=== PATIENT | female | born 1940 | race Caucasian/White ===

== ENCOUNTER 2018-07-09 05:59 | Day surgery (SDC) | payer OTHER ==
[2018-06-26 14:29] VITALS: BMI 22.6
[2018-07-09] MEDS ORDERED: LIDOCAINE HCL 2% (20ML MULTI-DOSE VIAL) NR ONE (07:20)
[2018-07-09] MEDS ORDERED: BUPIVACAINE HCL/PF 0.5% (5MG/ML) 10 ML VIAL ONE (07:20)
[2018-07-09] MEDS ORDERED: PROPOFOL 20 ML ONE (07:28)
[2018-07-09] MEDS ORDERED: MIDAZOLAM HCL 2 MG/2 ML SINGLE DOSE VIAL ONE (07:28)
[2018-07-09] MEDS ORDERED: LIDOCAINE HCL/PF 2% SDV 5ML VIAL ONE (07:29)
[2018-07-09] MEDS ORDERED: ceFAZolin SODIUM 1 GM VIAL ONE (07:44)
[2018-07-09] MEDS ORDERED: ONDANSETRON 4 MG/2 ML VIAL ONE (08:05)
[2018-07-09] MEDS ORDERED: ACETAMINOPHEN WITH CODEINE 300MG/30MG TABLET PO PRN (08:34)
[2018-07-09 08:48] VITALS: TEMP 97.6
[2018-07-09 09:43] VITALS: BP 152/84; PULSE 70
--- NOTE | 2018-07-09 19:04 | OP ---
DATE OF OPERATION: 07/09/2018 SURGEON: Dorian Ramires DPM LINE MECHANIC: Maxim Garcia DPM PREOPERATIVE DIAGNOSIS: Deep foreign body/screw in left foot. POSTOPERATIVE DIAGNOSIS: Deep foreign body/screw in left foot. OPERATIVE PROCEDURE: Excision of deep screw, left foot. OPERATION IN DETAIL: The patient was placed on the operating table in supine position. The usual aseptic prepping and draping were performed. A pneumatic tourniquet on the left ankle was inflated to 250 mmHg after 3 minutes of exsanguination, and then, the extremity was lowered to the operating table. Attention was directed to the first metatarsophalangeal joint of the left foot where a 2-cm curvilinear incision was effectively placed above the foreign body which was viewed on a mini C-arm. The incision was made down to bone. Sharp dissection was utilized to perform a flap. The screw was visualized, and utilizing a hexagon-shaped screwdriver, approximately a 2-1/2 inch screw was excised from the foot. The area was flushed with copious amounts of lidocaine solution, and the skin was reapproximated and closed with number 4-0 nylon. A dry sterile dressing with Adaptic was applied to the operative foot. The tourniquet was released. The capillary filling time was noted to be intact at bandaging. DORIAN RAMIRES DPM [id number]
--- NOTE | 2018-07-11 09:09 | PATH ---
Surgical Pathology Report Patient Name: MARI RIBEIRO [facility]. Rec. #: [id number] /Age/Gender: 1940 (Age: 77) / F Account: [id number] Location: [facility] Taken: 07/09/2018 Received: 07/09/2018 Reported: 07/11/2018 Physicians: Pierce Potts Specimen(s) Received SCREW LEFT FOOT Clinical History Foreign body left foot Final Diagnosis FOOT, LEFT, SCREW, REMOVAL: FOREIGN BODY MATERIAL. MACROSCOPIC DIAGNOSIS. Electronically Signed Amanda Garsia M.D. Gross Description Received fresh labeled "screw left foot," is a 4.2 cm in length lozoya metallic screw. No soft tissue is present. No sections are submitted, gross only. 07/10/201807/10/2018
== END 2018-07-09 09:35 | disposition home or self-care (01) ==
LOC: FASU 05:59
PROVIDERS: ATTEND Podiatrist
PROC: 0SPN04Z Removal of Internal Fixation Device from Left Metatarsal-Phalangeal Joint, Open Approach (ICD-10-PCS; principal; 2018-07-09 07:54)
DX: Z47.2 Encounter for removal of internal fixation device (principal)
CPT/HCPCS: 73630-TC-LT; 88300-TC